=== PATIENT | male | born 1960 | race Caucasian/White ===

== ENCOUNTER 2017-07-10 13:11 | Emergency (ER) | payer MEDICAID ==
[~2017-07-10] VITALS: Ht 152.4 cm; Wt 67.2 kg
[2017-07-10 13:21] VITALS: BP 124/84
== END 2017-07-10 14:20 | disposition home or self-care (01) ==
LOC: ED 14:00
DX: L03.114 Cellulitis of left upper limb (principal); L03.113 Cellulitis of right upper limb
CPT/HCPCS: 82962; 99283